=== PATIENT | female | born 1955 | race Asian ===

== ENCOUNTER 2017-12-16 16:44 | Emergency (ER) | payer BC ==
[~2017-12-16] VITALS: Ht 152.4 cm; Wt 58.6 kg
[2017-12-16 17:37] LABS: HEMATOCRIT 40.1 % (36.0-46.0); HEMOGLOBIN 13.8 G/DL (11.9-15.5); MCH 31.8 PG (29.0-34.0); MCHC 34.4 G/DL (30.0-36.0); MCV 92.4 FL (83-99); PLATELET COUNT 137 K/uL (156-360); RBC DIS.WIDTH-CV 11.7 % (11.8-14.6); RBC DIS.WIDTH-SD 39.8 % (39-53); RED BLOOD COUNT 4.34 M/uL (3.80-5.20); WHITE BLOOD COUNT 6.5 K/uL (4.1-10.2)
[2017-12-16 17:46] LABS: CHLORIDE 105 mEq/L (99-109); SODIUM 140 mEq/L (136-147)
[2017-12-16 17:47] LABS: GLUCOSE 142 mg/dL (70-99)
[2017-12-16 17:51] LABS: CREATININE 0.7 mg/dL (0.6-1.3); GFR ESTIMATE (CALCULATED) > 59 mL/min/
[2017-12-16 17:52] LABS: UREA NITROGEN (BUN) 15 mg/dL (9-23)
[2017-12-16] MEDS ORDERED: PERCOCET 5/31 TABLET PO (19:07)
[2017-12-16] MEDS ORDERED: MIRALAX119 GM PO (19:09)
[2017-12-16 20:23] VITALS: BP 162/88
== END 2017-12-16 20:28 | disposition home or self-care (01) ==
LOC: EME 16:44
PROVIDERS: Emergency Medicine
PROC: 0RSJXZZ Reposition Right Shoulder Joint, External Approach (ICD-10-PCS; principal; 2017-12-16)
DX: S42.251A Displaced fracture of greater tuberosity of right humerus, initial encounter for closed fracture (principal); S43.004A Unspecified dislocation of right shoulder joint, initial encounter; V86.59XA Driver of other special all-terrain or other off-road motor vehicle injured in nontraffic accident, initial encounter; I10 Essential (primary) hypertension
CPT/HCPCS: 73030; 80048; 85027; 99281; 99285; J2405; J3010; J7030